=== PATIENT | male | born 1995 | race Native Hawaiian/Other Pacific Islander ===

== ENCOUNTER 2016-07-18 09:28 | Emergency (ER) | payer OTHER ==
[2016-07-18 09:33] VITALS: BMI 24.5
[2016-07-18] MEDS ORDERED: Bacitracin 500 Units/gm Oint Foilpak UD ONE (10:11)
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
[2016-07-18 10:18] VITALS: BP 116/72; PULSE 92; RESP 18; TEMP 98.3; O2SAT 99
== END 2016-07-18 10:20 | disposition home or self-care (01) ==
LOC: C.ER 09:28 → SUPCPDRO 09:28 → C.ER 10:20
DX: Z48.02 Encounter for removal of sutures (principal)

== ENCOUNTER 2016-11-03 02:05 | Emergency (ER) | payer OTHER ==
[2016-11-03 02:06] VITALS: BMI 24.5
[2016-11-03 02:18] VITALS: RESP 20
--- NOTE | 2016-11-03 03:12 | C.PDOC ---
History Of Present Illness 21 year old male who presents to the ER with a complaint of intermittent swelling to the left nostril for the past 6 months that was worsened and increased in pain today. Patient reports he took nothing at home for the pain; denies cold symptoms, fever, headache, or dizziness. Time Seen by Provider: 11/03/16 02:55 Chief Complaint (Nursing): ENT Problem History Per: Patient History/Exam Limitations: None Onset/Duration Of Symptoms: Days (6 Months) Current Symptoms Are (Timing): Still Present Symptoms Have Been: Episodic Anticoagulant/Antiplatlet Use?: No Recent Aspirin Use: No Past Medical History Reviewed: Historical Data, Nursing Documentation, Vital Signs Vital Signs: Last Vital Signs Temp 98.2 F 11/03/16 03:23 Pulse 70 11/03/16 03:23 Resp 20 11/03/16 03:23 BP 129/70 11/03/16 03:23 Pulse Ox 99 11/03/16 03:23 - Medical History PMH: Depression Surgical History: No Surg Hx Family History: States: Unknown Family Hx - Social History Hx Alcohol Use: No Hx Substance Use: Yes - Immunization History Hx Tetanus Toxoid Vaccination: Yes Hx Influenza Vaccination: Yes Hx Pneumococcal Vaccination: No Review Of Systems Constitutional: Negative for: Fever ENT: Positive for: Nose Pain. Negative for: Nose Discharge Respiratory: Negative for: Cough, Shortness of Breath Neurological: Negative for: Headache, Dizziness Physical Exam - Physical Exam Appears: Non-toxic, No Acute Distress Skin: Normal Color, Warm, Dry Head: Atraumatic, Normacephalic Ear(s): Bilateral: Normal Nose: Discharge (Right nostril), Other (Enlarged nasal turbinates) Oral Mucosa: Moist Throat: Normal, No Erythema, No Exudate Neck: Normal, Supple Neurological/Psych: Oriented x3, Normal Speech, Normal Cognition ED Course And Treatment O2 Sat by Pulse Oximetry: 98 (Room air) Pulse Ox Interpretation: Normal Progress Note: Motrin administered. Patient advised to follow up with PMD. Disposition Counseled Patient/Family Regarding: Diagnosis, Need For Followup - Disposition Referrals: [facility] [Outside] Disposition: HOME/ ROUTINE Disposition Time: 03:14 Condition: STABLE Additional Instructions: Please follow up in clinic Take meds as directed Return to ER if worse Prescriptions: Cetirizine HCl [Zyrtec] 10 mg PO DAILY #20 capsule Ibuprofen [Motrin] 600 mg PO Q6H #30 tab Mometasone Furoate [Nasonex] 2 spray NS DAILY #1 bottle Instructions: Allergic Rhinitis (ED) - Clinical Impression Clinical Impression: Allergic rhinitis - Scribe Statement The provider has reviewed the documentation as recorded by the Scribe Jw Duque All medical record entries made by the Brissaibe were at my direction and personally dictated by me. I have reviewed the chart and agree that the record accurately reflects my personal performance of the history, physical exam, medical decision making, and the department course for this patient. I have also personally directed, reviewed, and agree with the discharge instructions and disposition.
[2016-11-03 03:24] VITALS: BP 129/70; PULSE 70; TEMP 98.2
[2016-11-03 04:27] VITALS: O2SAT 98
== END 2016-11-03 03:23 | disposition home or self-care (01) ==
LOC: C.ER 02:05
DX: J30.9 Allergic rhinitis, unspecified (principal)